=== PATIENT | female | born 2000 | race Two or more races ===

== ENCOUNTER → 2025-03-04 | Emergency (ER) | payer OTHER ==
[~2025-03-04] VITALS: Ht 162.6 cm; Wt 90.7 kg
[2025-03-04 00:46] VITALS: BP 110/82; O2SAT 100
== END | disposition left against medical advice (07) ==
LOC: ER 00:39
DX: Z53.21 Procedure and treatment not carried out due to patient leaving prior to being seen by health care provider (principal)